=== PATIENT | female | born 1995 | race Caucasian/White ===

== ENCOUNTER 2023-04-26 14:18 | Emergency (ER) | payer MEDICAID ==
[~2023-04-26] VITALS: Ht 170.2 cm; Wt 61.0 kg
[2023-04-26 14:23] VITALS: BP 99/54; PULSE 66; RESP 14; TEMP 98.9; O2SAT 100
[2023-04-26 14:52] LABS: BILIRUBIN,URINE NEGATIVE (Neg); CLARITY,URINE CLOUDY (Clear); COLOR,URINE YELLOW (Yellow); GLUCOSE, URINE NEGATIVE (Neg); KETONES,URINE NEGATIVE (Neg); LEUKOCYTE ESTERASE ,URINE SMALL (Neg); NITRITES, URINE NEGATIVE (Neg); OCCULT BLOOD,URINE SMALL (Neg); PROTEIN,URINE 100 mg/dl (Neg); UROBILINOGEN,URINE 0.2 E.U/dL (0.2-1.0)
[2023-04-26 14:53] LABS: UA COLLECTION TYPE CLN CATCH MIDSTREAM
[2023-04-26 14:54] LABS: URINE HCG NEGATIVE (NEG)
[2023-04-26 15:02] LABS: BACTERIA,URINE 1+ /HPF (Neg); MUCUS STRANDS FEW /LPF (Neg); SQUAMOUS EPITHELIAL CELL,UR MODERATE /LPF (FEW); TRANSITIONAL EPI CELLS,URINE FEW /HPF; WBC CLUMPS,URINE MODERATE /HPF (NEGATIVE); WBC,URINE TNTC /HPF (0-4)
[2023-04-26] MEDS ORDERED: PHEN-786 PO (15:28)
[2023-04-26] MEDS ORDERED: NITR100C6 PO (15:28)
[2023-04-26 16:03] LABS: SYPHILIS SCREENING TEST POC NEGATIVE (Negative)
== END 2023-04-26 17:08 | disposition home or self-care (01) ==
LOC: ER 14:19
DX: N39.0 Urinary tract infection, site not specified (principal)
CPT/HCPCS: 36415; 81001; 81025; 87077; 87088; 87186; 99283

== ENCOUNTER 2023-08-30 11:49 | Emergency (ER) | payer MEDICAID ==
[~2023-08-30] VITALS: Ht 170.2 cm; Wt 55.7 kg
[~2023-08-30 11:49] MED LIST: NITR100C6 PO; PHEN-786 PO
[2023-08-30 12:21] LABS: BILIRUBIN,URINE NEGATIVE (Neg); CLARITY,URINE CLOUDY (Clear); COLOR,URINE YELLOW (Yellow); GLUCOSE, URINE NEGATIVE (Neg); KETONES,URINE NEGATIVE (Neg); LEUKOCYTE ESTERASE ,URINE NEGATIVE (Neg); NITRITES, URINE NEGATIVE (Neg); OCCULT BLOOD,URINE NEGATIVE (Neg); PROTEIN,URINE NEGATIVE (Neg); UROBILINOGEN,URINE 0.2 E.U/dL (0.2-1.0)
[2023-08-30 12:22] LABS: URINE HCG POSITIVE (NEG)
[2023-08-30 12:33] LABS: UA COLLECTION TYPE CLN CATCH MIDSTREAM
[2023-08-30 12:34] LABS: BACTERIA,URINE NONE SEEN /HPF (Neg); RBC,URINE NONE SEEN /HPF (0-2); SQUAMOUS EPITHELIAL CELL,UR NONE SEEN /LPF (FEW); WBC,URINE 0-4 /HPF (0-4)
[2023-08-30 12:35] LABS: AMORPHOUS PHOSPHATES 2+; MUCUS STRANDS FEW /LPF (Neg)
[2023-08-30 12:49] LABS: BASOPHILS % (AUTO) 0.4 % (0-1); EOSINOPHILS # (AUTO) 0.1 X10'3 (0-0.9); EOSINOPHILS % (AUTO) 1.3 % (0-6); HEMATOCRIT 39.3 % (35.0-45.0); HEMOGLOBIN 13.2 g/dl (12.0-16.0); LYMPHOCYTES # (AUTO) 2.1 X10'3 (1.1-4.8); LYMPHOCYTES % (AUTO) 20.5 % (21-51); MEAN CORPUSCULAR HEMOGLOBIN 31.8 PG (27.0-31.0); MEAN CORPUSCULAR HGB CONC 33.5 g/dL (33.0-36.5); MEAN CORPUSCULAR VOLUME 94.9 FL (78-98); MONOCYTES # (AUTO) 0.9 X10'3 (0-0.9); MONOCYTES % (AUTO) 8.9 % (2-12); NEUTROPHILS % (AUTO) 68.9 % (42-75); PLATELET COUNT 287 X10'3 (140-440); RED BLOOD COUNT 4.14 X10'6 (4.20-5.60); RED CELL DISTRIBUTION WIDTH 12.9 % (11.5-14.5); WHITE BLOOD COUNT 10.2 X10'3 (4.5-11.0)
[2023-08-30] MEDS: ondansetron 4mg rapidly disintigrating tab PO ONE (12:56)
[2023-08-30 13:06] LABS: ALANINE AMINOTRANSFERASE 14 U/L (12-78); ALBUMIN 3.3 G/DL (3.4-5.0); ALBUMIN/GLOBULIN RATIO 0.9 (1.1-1.5); ALKALINE PHOSPHATASE 40 IU/L (46-116); ANION GAP 10 (8-16); ASPARTATE AMINO TRANSFERASE 12 U/L (10-37); BILIRUBIN,TOTAL 0.2 MG/DL (0.1-1.0); BLOOD UREA NITROGEN 8 MG/DL (7-18); BUN/CREATININE RATIO 11.1 (10.0-20.0); CALCIUM 8.6 MG/DL (8.5-10.1); CHLORIDE 105 MMOL/L (99-107); CREATININE 0.72 MG/DL (0.40-0.90); GLUCOSE 80 MG/DL (70-104); LIPASE 47 U/L (16-77); SODIUM 140 MMOL/L (135-145); eCRCL 101 ML/MIN; eGFR > 90 ML/MIN
[2023-08-30 13:07] VITALS: BP 102/52; PULSE 60; RESP 18; TEMP 97.5; O2SAT 99
[2023-08-30] MEDS ORDERED: DOXY25TA58 PO (13:19)
[2023-08-30] MEDS ORDERED: PYRI-3 PO (13:19)
[2023-08-30] MEDS: normal saline 1000ml 1,000 ML IV ONE ×2 (13:22→13:59)
== END 2023-08-30 14:58 | disposition home or self-care (01) ==
LOC: ER 11:50
DX: O21.9 Vomiting of pregnancy, unspecified (principal); Z3A.09 9 weeks gestation of pregnancy; Z79.899 Other long term (current) drug therapy
CPT/HCPCS: 36415; 80053; 81001; 81025; 83690; 85025; 96360; 99283; J7030